=== PATIENT | female | born 1955 | race Caucasian/White ===

== ENCOUNTER → 2016-06-10 | Day surgery (SDC) | payer OTHER ==
[~2016-06-10] MED LIST: BUPIVACAINE HCL PF 0.5% 10 ML VIAL ONE; ISOSULFAN BLUE 50 MG/5 ML VIAL SQ ONE; KETOROLAC TROMETHAMINE 30 MG/ML (IVP) VIAL ONE; LACTATED RINGER'S 1,000 ML BAG IV ONE; LACTATED RINGER'S 1000 ML INJ 1,000 ML ONE; MEPERIDINE HCL 25 MG/ML VIAL ONE; MEPERIDINE HCL 50 MG/ML VIAL ONE; MIDAZOLAM HCL 2 MG/2 ML VIAL ONE; MORPHINE SULFATE 4 MG/ML INJ ONE; ONDANSETRON HCL 4 MG/2 ML VIAL IV PUSH ONE; PROPOFOL 200 MG/20 ML AMP IV ONE; SODIUM CHLORIDE 0.9% INJ 10 ML ONE; ceFAZolin 2 GM PREMIX 50 ML ONE
--- NOTE | 2016-06-10 15:27 | TN ---
cc: SAMMIE MALDONADO DATE OF SURGERY: 06/10/2016. PRINCIPAL DIAGNOSIS: Left breast cancer. PROCEDURE PERFORMED: Left breast needle-localized lumpectomy and left axillary sentinel lymph node biopsy. SURGEON: Sammie Maldonado MD. ANESTHESIA: General via LMA device. INDICATIONS FOR THE PROCEDURE: The patient is a 61-year-old female with a newly diagnosed clinical stage I left breast cancer. She desires breast conservation and now presents for the procedure. FINDINGS AT THE TIME OF SURGERY: Five sentinel lymph nodes were identified: #1 was non-blue and had a count of 40. #2 was not blue with no count. #3 was suspicious and mildly enlarged with no count or blue uptake. #4 was also suspicious with no count and no blue uptake. Debary lymph node #5 was 1+ blue and had a count of 1165. TouchPrep analysis was not performed. Specimen ultrasound did demonstrate an intact wire and the density and clip were within the specimen. DESCRIPTION OF THE PROCEDURE IN DETAIL: After informed consent was obtained and site verification was performed, the patient was brought to the radiology suite where she underwent peritumoral radionuclide injection as well as needle localization. She was then brought to the major operating room where she underwent general anesthesia via an LMA device. Three mL of half-strength Lymphazurin were injected in the subareolar left breast and a 5-minute massage was performed. The left breast and arm were then prepped and draped in sterile fashion. She was given a single dose of IV Ancef and sequential compression hose were placed. An incision was anesthetized at the inferior aspect of the left axillary hairline using 0.5% Marcaine plain and both sharp and electrocautery dissection were performed until the level I axilla was entered. Some mid level I enlarged lymph nodes were identified and these were circumferentially dissected free from surrounding structures using the harmonic scalpel and became sentinel lymph nodes #3 and #4. An adjacent lymph node did have a count close to the chest wall and this was circumferentially dissected free from surrounding structures with the findings as noted and it had a count of 40. A lymph node close to the axillary vein was identified and it was quite small but there was some blue uptake. This lymph node was circumferentially dissected free from surrounding structures using the harmonic scalpel and this was sent as sentinel lymph node #2. Good hemostasis was noted and the background count was 16. However, further inspection did demonstrate a 1+ blue lymph node in the axillary tail close to the chest wall. This was circumferentially dissected free from surrounding structures using the harmonic scalpel and this one had a count of 1165. Good hemostasis was noted and the wound was closed using interrupted 3-0 Vicryl subcutaneous sutures and a 4-0 Monocryl subcuticular suture. Attention was then turned to the left breast where a 10 o'clock periareolar incision was anesthetized. Sharp dissection was performed until the wire entry point through the skin was identified and secured with a hemostat. The wire was cut off at the skin with pin cutters and a 2-0 silk transfixion suture was placed at the wire entry point into the breast tissue. Both sharp and electrocautery dissection were then performed circumferentially around the wire. The specimen was oriented with two sutures anteriorly, one short suture superiorly and one long suture medially. Inspection of the specimen did demonstrate that the medial and superior margins appeared close as well as the inferior margin. The lumpectomy specimen was sent to x-ray with the findings as noted and was then sent for permanent pathologic evaluation. The medial, superior, and the inferior margins were each re-excised with a stitch on the new margin and they were sent separately as permanent specimens. Hemostasis was obtained using electrocautery and the wound was closed using interrupted 3-0 Vicryl subcutaneous sutures and a 4-0 Monocryl subcuticular suture. Steri-Strips and a sterile dressing were applied. The patient tolerated the procedure well with an estimated blood loss of 200 mL and she was extubated in the operating room and brought to the recovery room in good condition. All sponge and needle counts were correct at the conclusion of the case. MD SUZY Mcduffie/TAMIA /2:47 PM /3:15 PM
== END | disposition home or self-care (01) ==
LOC: ESDC 09:13
PROVIDERS: ATTEND Surgery
DX: C50.912 Malignant neoplasm of unspecified site of left female breast (principal)
CPT/HCPCS: 00400; 01610; 19125; 38525; 38792; 88307; J0690; J1885; J2175; J2250; J2270; J2405; J3010; J7120; Q9968; 88341; 88342